=== PATIENT | male | born 1980 | race Caucasian/White ===

== ENCOUNTER → 2022-07-03 18:19 | Outpatient (CLI) | payer BC, SELFPAY ==
--- NOTE | 2022-07-03 18:28 | XR_ITS ---
PROCEDURE INFORMATION: Exam: XR Left Foot Exam date and time: 07/03/2022 6:20 PM Age: 41 years old Clinical indication: Pain; Foot; Left; Additional info: Left foot pain. Swelling and pain in great toe x 2 weeks. TECHNIQUE: Imaging protocol: Radiologic exam of the Left foot. Views: 3 or more views. COMPARISON: No relevant prior studies available. FINDINGS: Bones/joints: No evidence of acute fracture or dislocation. 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 No erosive disease is evident. Soft tissues: Normal soft tissue planes. 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 No erosive disease to suggest gout.
--- NOTE | 2022-07-03 18:28 | XR_ITS ---
PROCEDURE INFORMATION: Exam: XR Right Knee Exam date and time: 07/03/2022 6:21 PM Age: 41 years old Clinical indication: Pain; Knee; Right; Additional info: Right knee pain TECHNIQUE: Imaging protocol: Radiologic exam of the Right knee. Views: 3 views. COMPARISON: No relevant prior studies available. FINDINGS: Bones/joints: No evidence of acute fracture or dislocation. No erosive disease. No significant degenerative change. No joint effusion. Soft tissues: Normal. IMPRESSION: No acute bony abnormality. No joint effusion.
== END ==
PROVIDERS: PCP Nurse Practitioner; Visit Provider Nurse Practitioner
DX: M25.561 Pain in right knee (principal); M79.672 Pain in left foot
CPT/HCPCS: 73562; 73630